=== PATIENT | female | born 1950 | race Hispanic/Latino ===

== ENCOUNTER 2017-05-13 05:53 | Inpatient (IN) | payer MEDICARE, OTHER ==
[2017-05-11 10:58] VITALS: BMI 24.6
--- NOTE | 2017-05-13 07:21 | CP.PCM.HP ---
History of Present Illness - History of Present Illness History of Present Illness: This is a 66 y/o right handed female who presents with progressive neck pain that has been going on for over a year and has been worsening in the past few months. She describes it as tightness, that starts in back of neck and radiates to her head and shoulders. It is associated with subjective heaviness and weakness of extremities. Her cervical spine was recently imaged after a symptom exacerbation . The imaging revealed severe degenerative cervical spondylosis and stenosis prompting surgical consideration due to severity and risk of cord injury in the event of trauma or a fall. She denies urinary or bladder incontinence, numbness or paresthesias, gait instability, or dizziness. Present on Admission - Present on Admission Any Indicators Present on Admission: No Review of Systems - Neurological Neurological: As Per HPI Past Patient History - Infectious Disease Hx of Infectious Diseases: None - Past Medical History & Family History Past Medical History?: Yes - Past Social History Smoking Status: Never Smoked - CARDIAC Hx Cardiac Disorders: Yes Hx Hypertension: Yes - PULMONARY Hx Respiratory Disorders: No - NEUROLOGICAL Hx Neurological Disorder: No - HEENT Hx HEENT Problems: No - RENAL Hx Chronic Kidney Disease: No - ENDOCRINE/METABOLIC Hx Endocrine Disorders: No - HEMATOLOGICAL/ONCOLOGICAL Hx Blood Disorders: Yes Hx Cancer: Yes (hx of L breast cancer) - INTEGUMENTARY Hx Dermatological Problems: No - MUSCULOSKELETAL/RHEUMATOLOGICAL Hx Musculoskeletal Disorders: No Hx Arthritis: Yes - GASTROINTESTINAL Hx Gastrointestinal Disorders: No - GENITOURINARY/GYNECOLOGICAL Hx Genitourinary Disorders: No - PSYCHIATRIC Hx Psychophysiologic Disorder: No Hx Substance Use: No - SURGICAL HISTORY Hx Surgeries: Yes Hx Arthroscopy: Yes (right knee) Hx Breast Biopsy: Yes (left/lumpectomy) Other/Comment: L breast surgery with lymph removed. - ANESTHESIA Hx Anesthesia: Yes Hx Anesthesia Reactions: Yes (shivering) Hx Malignant Hyperthermia: No Has any member of the family had a problem w/ anesthesia?: No Meds Allergies/Adverse Reactions: Allergies Allergy/AdvReac Type Severity Reaction Status Date / Time No Known Allergies Allergy Verified 01/25/17 11:39 Physical Exam - Neurological Exam Additional comments: A&Ox3 CN intact CÁRDENAS Motor 5/5 throughout sensation intact pain induced with deltoid motor testing neg spurlings limited ROM of neck No tenderness to palpation on neck. Neg morataya Results - Vital Signs Recent Vital Signs: Last Vital Signs Temp 98.2 F 01/10/18 06:31 Pulse 78 05/13/17 06:34 Resp 20 05/13/17 06:31 BP 144/80 05/13/17 06:31 Pulse Ox 97 05/13/17 06:31 - Imaging and Cardiology MRI C spine Status: Image reviewed by me, Report reviewed by me Assessment & Plan - Assessment and Plan (Free Text) Assessment: Cervical spondylosis, stenosis Plan: Patient presented to Dr. Cm for second opinion for surgical intervention Imaging reviewed and explained to patient. Proposed Cervical laminectomy C4-C7 with PSF Risks and benefits explained , risks such as infection, hemorrhage, CSF leak, weakness, numbness, failure of surgery or need for futher surgery explained. The patient expressed understanding of the above and all questions answered. Will proceed with proposed procedure.
[2017-05-13] MEDS ORDERED: Thrombin Topical 5,000 Int Units Spray Kit ONE (07:24)
[2017-05-13] MEDS ORDERED: Bupivacaine HCl 0.25% PF (30 ml) Inj ONE (07:24)
[2017-05-13] MEDS ORDERED: ceFAZolin IV 1 gm in Dextrose 1 GM/50 ML BAG IVPB ONE (07:24)
[2017-05-13] MEDS ORDERED: Absorbable Gelatin Sponge Size 100 ONE (07:24)
[2017-05-13] MEDS ORDERED: Lidocaine 1% Inj (20ml) ONE (07:24)
[2017-05-13] MEDS ORDERED: Bacitracin Ointment 30 GM TUBE ONE (07:46)
[2017-05-13] MEDS ORDERED: Propofol 10 mg/ml Inj (20 ML) ONE (07:51)
[2017-05-13] MEDS ORDERED: Midazolam 2 MG/2 ML VIAL ONE (07:51)
[2017-05-13] MEDS ORDERED: Rocuronium 10 mg/ml (5 ml) ONE (07:52)
[2017-05-13] MEDS ORDERED: Lidocaine 4% (Laryng-O-Jet) Kit MM ONE (07:52)
[2017-05-13] MEDS ORDERED: Lidocaine/Epi 1% 1:100000 20 ML IJ ONE (08:25)
[2017-05-13] MEDS ORDERED: Sevoflurane - Inhalation Anesthetic Liq (250 ml) ONE (08:32)
[2017-05-13] MEDS ORDERED: HEMOSTATIC MATRIX 10 ML DIS.NEEDLE TOP ONE ×3 (08:46→09:30)
[2017-05-13] MEDS ORDERED: ePHEDrine 50 mg/ml Inj ONE (09:46)
[2017-05-13] MEDS ORDERED: Lactated Ringer's 1,000 ML IV ONE ×2 (09:49→09:53)
[2017-05-13] MEDS ORDERED: HYDROmorphone 0.5 mg/0.5 ml ISec IVP PRN ×2 (10:25→11:27)
--- NOTE | 2017-05-13 11:18 | PCM.SURG1 ---
Surgeon's Initial Post Op Note - Surgeon's Notes Surgeon: Reyes Cm MD Big Data Platform Architect: Xavier FERRER Type of Anesthesia: General Endo Anesthesia Administered By: Huseyin Pre-Operative Diagnosis: Cervical spondylosis and stenosis Operative Findings: cervical stenosis, osteophytes. Post-Operative Diagnosis: as above Operation Performed: Decompressive cervical laminetomy and lateral mass screw instrumentation fusion C4-C7 Specimen/Specimens Removed: none Estimated Blood Loss: EBL {In ML}: 150 Blood Products Given: N/A Drains Used: No Drains, Chavez Curtis (x2 sub fascial ) Post-Op Condition: Good Date of Surgery/Procedure: 05/13/17 Time of Surgery/Procedure: 10:00
[2017-05-13] MEDS: Lactated Ringer's 1,000 ML IV SCH ×2 (12:50→20:19)
--- NOTE | 2017-05-13 12:50 | CP.PCM.HP ---
<Maral Cortés - Last Filed: 05/13/17 13:07> History of Present Illness - History of Present Illness History of Present Illness: 66 yr old F presented to same day surgery for scheduled cervical laminectomy of C4-C7 with fusion s/p severe non-traumatic protruding degenerative disease of cervical spine. PMHx includes HTN, obesity, chronic cervical back pain and TMJ dysfunction. Patient seen and examined at bedside with attending Dr. Mathews. Patient reports having chronic worsening persistent cervical back pain. Denies chest pain, SOB, weakness, dizziness or visual changes. PMD: [facility] PMHx: HTN, obesity, chronic cervical back pain and TMJ dysfunction SurgHx: left breast lumpectomy with lymph node removal, right knee arthroscopy FMHx: noncontributory SocHx: denies smoking, Etoh or drugs Medications: ASA 81mg PO QD, Procardia XL 60mg PO QD, Simvastatin 20mg PO QHS, Calcium 500mg PO QD, Multivitamin 1 tab PO QD, [place]-3 1 tab PO QD Allergies: NKDA Present on Admission - Present on Admission Any Indicators Present on Admission: No History of DVT/PE: No History of Uncontrolled Diabetes: No Urinary Catheter: No Decubitus Ulcer Present: No History Surgical Site Infection Following: None Review of Systems - Review of Systems All systems: reviewed and no additional remarkable complaints except (for what is mentioned in the HPI) - Constitutional Constitutional: absent: Chills, Weight Loss - EENT Eyes: absent: Blurred Vision, Change in Vision Ears: absent: Disequilibrium, Dizziness Nose/Mouth/Throat: absent: Nasal Congestion, Nasal Discharge - Cardiovascular Cardiovascular: absent: Chest Pain - Respiratory Respiratory: absent: Cough, Dyspnea - Gastrointestinal Gastrointestinal: absent: Abdominal Pain, Diarrhea, Vomiting - Genitourinary Genitourinary: absent: Difficulty Urinating, Dysuria - Menstruation Menstruation: Post Menopausal - Neurological Neurological: absent: Dizziness, Syncope - Psychiatric Psychiatric: absent: Homicidal Ideation, Suicidal Ideation - Endocrine Endocrine: absent: Polydipsia, Polyphagia, Polyuria - Hematologic/Lymphatic Hematologic: absent: Easy Bleeding, Easy Bruising Past Patient History - Infectious Disease Hx of Infectious Diseases: None - Past Medical History & Family History Past Medical History?: Yes - Past Social History Smoking Status: Never Smoked - CARDIAC Hx Cardiac Disorders: Yes Hx Hypertension: Yes - PULMONARY Hx Respiratory Disorders: No - NEUROLOGICAL Hx Neurological Disorder: No - HEENT Hx HEENT Problems: No - RENAL Hx Chronic Kidney Disease: No - ENDOCRINE/METABOLIC Hx Endocrine Disorders: No - HEMATOLOGICAL/ONCOLOGICAL Hx Blood Disorders: Yes Hx Cancer: Yes (hx of L breast cancer) - INTEGUMENTARY Hx Dermatological Problems: No - MUSCULOSKELETAL/RHEUMATOLOGICAL Hx Musculoskeletal Disorders: No Hx Arthritis: Yes - GASTROINTESTINAL Hx Gastrointestinal Disorders: No - GENITOURINARY/GYNECOLOGICAL Hx Genitourinary Disorders: No - PSYCHIATRIC Hx Psychophysiologic Disorder: No Hx Substance Use: No - SURGICAL HISTORY Hx Surgeries: Yes Hx Arthroscopy: Yes (right knee) Hx Breast Biopsy: Yes (left/lumpectomy) Other/Comment: L breast surgery with lymph removed. - ANESTHESIA Hx Anesthesia: Yes Hx Anesthesia Reactions: Yes (shivering) Hx Malignant Hyperthermia: No Has any member of the family had a problem w/ anesthesia?: No Meds Allergies/Adverse Reactions: Allergies Allergy/AdvReac Type Severity Reaction Status Date / Time No Known Allergies Allergy Verified 01/25/17 11:39 Physical Exam - Constitutional Appears: Non-toxic - Head Exam Head Exam: ATRAUMATIC, NORMOCEPHALIC - Eye Exam Eye Exam: EOMI, PERRL - ENT Exam ENT Exam: Mucous Membranes Moist - Neck Exam Neck exam: Positive for: Full Rom - Respiratory Exam Respiratory Exam: Clear to Auscultation Bilateral, NORMAL BREATHING PATTERN - Cardiovascular Exam Cardiovascular Exam: REGULAR RHYTHM, +S1, +S2 - GI/Abdominal Exam GI & Abdominal Exam: Normal Bowel Sounds, Soft (obese). absent: Tenderness - Extremities Exam Extremities exam: Positive for: full ROM. Negative for: pedal edema - Neurological Exam Neurological exam: Alert, CN II-XII Intact, Oriented x3 - Psychiatric Exam Psychiatric exam: Normal Affect, Normal Mood - Skin Skin Exam: Dry, Normal Color, Warm Results - Vital Signs Recent Vital Signs: Last Vital Signs Temp 96.2 F L 05/13/17 10:25 Pulse 86 05/13/17 10:25 Resp 18 05/13/17 10:25 BP 109/67 05/13/17 10:25 Pulse Ox 100 05/13/17 10:25 - Labs Labs: Laboratory Results - last 24 hr 05/13/17 05/13/17 06:45 08:20 Blood Type A POSITIVE Blood Type Confirm A POSITIVE Antibody Screen Negative BBK History Checked No verified bt Assessment & Plan - Assessment and Plan (Free Text) Assessment: 66 yr old F presented to same day surgery for scheduled cervical laminectomy of C4-C7 with fusion s/p severe non-traumatic protruding degenerative disease of cervical spine. Patient seen and examined at bedside with attending Dr. Mathews. Patient is medically stable for surgery. -continue present management -will resume home medications after surgery -monitor BP -admit to telemetry for medical management s/p surgery - Date & Time Date: 05/13/17 Time: 10:00 <Karson Mathews - Last Filed: 05/17/17 17:33> Results - Vital Signs Recent Vital Signs: Last Vital Signs Temp 98.7 F 05/17/17 16:00 Pulse 97 H 05/17/17 16:00 Resp 14 05/17/17 16:00 BP 138/82 05/17/17 16:00 Pulse Ox 97 05/17/17 16:00 - Labs Result Diagrams: 05/14/17 05:00 05/14/17 05:00 Assessment & Plan - Assessment and Plan (Free Text) Plan: discussed with Dr Cortés and agree with palns and management. Karson Mathews MD
[2017-05-13] MEDS: oxyCODONE 5 mg Immediate Release Tab PO PRN ×2 (16:48→21:21)
[2017-05-13] MEDS: Docusate-Senna 50 mg-8.6 mg Tab PO SCH (21:23)
--- NOTE | 2017-05-14 02:48 | OP ---
PROCEDURE DATE: 05/13/2017 PREOPERATIVE DIAGNOSIS: Cervical spondylosis with myelopathy. POSTOPERATIVE DIAGNOSIS: Cervical spondylosis with myelopathy. PROCEDURES: C4-C7 cervical laminectomy; C4-C7 lateral mass plating using K2 system; C4-C7 posterolateral fusion; head bone grinder had been used; fluoroscopy had been used. SURGEON: Reyes Cm MD. DENTAL FRONT OFFICE ASSISTANT: Xavier Lau. Xavier Lau is a physician assistant professor of nursing who helped me perform the surgery. DESCRIPTION OF PROCEDURE: The patient was brought to the operating room, anesthetized with general endotracheal anesthesia. The head was placed in a 3-pin Lind head bone grinder under asceptic precautions, placed in a prone position on a Jalen frame. Care was taken to protect all the pressure points. The head bone grinder had been clamped to the bed. Back of the cervical area was thoroughly prepped and draped in standard sterile manner after marking was consistent for cervical laminectomy. After prepping and draping the area, skin had been incised. Bleeding skins had been controlled with bipolar customer technical services manager. After using a Bovie customer technical services manager, paraspinal muscles had been detached, attachments of spinous process, lamina of C4-C7. Identification of the levels had been done with the help of fluoroscopy. Deep retractors had been applied. By using a traditional landmark, the point of entry noted for lateral mass screws at C4, C5, C6 and C7. Initially, a guide, later a drill had been used. Polyaxial titanium screws had been placed of K2 system. Titanium rods had been placed. Cap nuts had been used in order to secure them. After this, by using a Le[place]ell rongeur, the spinous processes of C4, C5, C6, C7 had been removed. By using a high-speed drill, lamina had been drilled to actual thickness. By using a fine Kerrison punch, thinned out some lamina, medial part of the facets and ligamentum flavum had been removed decompressing this area. After that, the lateral aspect of the facets joints had been decorticated; demineralized bone placed in the area achieving a posterolateral fusion. Hemostasis was best achieved. Chavez drain was placed in the wound and brought out through a separate stab neck skin incision. Fascia closed with 1 Vicryl, subcutaneous tissue with 3 Vicryl, skin had been closed with intradermal 3 Vicryl stitches. The patient tolerated the procedure. After the procedure, mobilized to the recovery room in stabilized condition. Reyes Cm MD
[2017-05-14] MEDS: Lactated Ringer's 1,000 ML IV SCH ×2 (03:55→09:14)
[2017-05-14 06:15] LABS: HEMOGLOBIN 10.7 g/dL (12.0-16.0); MEAN CELL VOLUME 86.5 fl (81.0-99.0); MEAN CORPUSCULAR HEMOGLOBIN 27.3 pg (27.0-31.0); MEAN CORPUSCULAR HGB CONC 31.6 g/dL (33.0-37.0); RBC 3.91 Mil/uL (3.80-5.20); RED CELL DISTRIBUTION WIDTH 13.4 % (11.5-14.5); WHITE BLOOD COUNT 11.4 K/uL (4.8-10.8)
[2017-05-14 06:23] LABS: BLOOD UREA NITROGEN 12 mg/dl (7-17); CALCIUM 8.8 mg/dL (8.4-10.2); GFR AFRICAN-AMERICAN > 60; GFR NON-AFRICAN AMERICAN > 60
--- NOTE | 2017-05-14 11:06 | CP.PCM.PN ---
<Maral Cortés - Last Filed: 05/14/17 12:43> Subjective - Date & Time of Evaluation Date of Evaluation: 05/14/17 Time of Evaluation: 10:05 - Subjective Subjective: Patient seen and examined at bedside with attending-Dr. Mathews. Reports she neck stiffness. Denies chest pain, SOB or weakness. Has normal urine output and is tolerating PO diet. Objective - Vital Signs/Intake and Output Vital Signs (last 24 hours): Temp Pulse Resp BP Pulse Ox 99.1 F 75 20 124/71 97 05/14/17 08:41 05/14/17 08:41 05/14/17 08:41 05/14/17 08:41 05/14/17 08:41 - Medications Medications: Current Medications Acetaminophen (Tylenol 325mg Tab) 975 mg PO Q6 [facility] Last Admin: 05/14/17 09:04 Dose: 975 mg Cyclobenzaprine HCl (Flexeril) 10 mg PO TID PRN PRN Reason: Muscle spasm Docusate Sodium (Colace) 100 mg PO BID [facility] Last Admin: 05/14/17 08:59 Dose: 100 mg Hydromorphone HCl (Dilaudid) 0.5 mg IVP Q6 PRN PRN Reason: Pain, severe (8-10) Stop: 05/15/17 11:27 Lactated Ringer's (Lactated Ringer's) 1,000 mls @ 100 mls/hr IV .Q10H [facility] Last Admin: 05/14/17 03:55 Dose: 100 mls/hr Vancomycin HCl 1 gm/ Sodium (Chloride) 250 mls @ 166.667 mls/hr IVPB Q12 [facility] PRN Reason: Protocol Stop: 05/14/17 22:29 Last Admin: 05/14/17 09:04 Dose: 166.667 mls/hr Lactated Ringer's (Lactated Ringer's) 1,000 mls @ 100 mls/hr IV .Q10H [facility] Last Admin: 05/14/17 09:14 Dose: 100 mls/hr Ondansetron HCl (Zofran Inj) 4 mg IVP Q6 PRN PRN Reason: Nausea/Vomiting Oxycodone HCl (Oxycodone Immediate Release Tab) 10 mg PO Q4 PRN PRN Reason: Pain, moderate (4-7) Last Admin: 05/13/17 21:21 Dose: 10 mg Senna/Docusate Sodium (Senokot S 50 Mg-8.6 Mg) 2 tab PO HS [facility] Last Admin: 05/13/17 21:23 Dose: 2 tab - Labs Labs: 05/14/17 05:00 05/14/17 05:00 - Constitutional Appears: Non-toxic - Head Exam Head Exam: ATRAUMATIC, NORMOCEPHALIC - Eye Exam Eye Exam: EOMI, PERRL - ENT Exam ENT Exam: Mucous Membranes Moist - Neck Exam Additional comments: in soft neck brace, [address] with serosanguinous drainage of less than 5cc - Respiratory Exam Respiratory Exam: NORMAL BREATHING PATTERN - Cardiovascular Exam Cardiovascular Exam: REGULAR RHYTHM, +S1, +S2 - GI/Abdominal Exam GI & Abdominal Exam: Soft, Normal Bowel Sounds - Extremities Exam Extremities Exam: Full ROM. absent: Pedal Edema - Neurological Exam Neurological Exam: Alert, Awake, Oriented x3 - Psychiatric Exam Psychiatric exam: Normal Affect, Normal Mood - Skin Skin Exam: Dry, Normal Color, Warm Assessment and Plan - Assessment and Plan (Free Text) Assessment: 66 yr old F POD# 1 s/p cervical laminectomy of C4-C7 with fusion for severe non- traumatic protruding degenerative disease of cervical spine. Patient seen and examined at bedside with attending Dr. Mathews. Patient is medically stable for physical therapy. -continue present management -will resume home medications -monitor BP -admit to telemetry for medical management s/p surgery -flexeril 10mg PO TID PRN <Karson Mathews - Last Filed: 05/17/17 17:39> Objective - Vital Signs/Intake and Output Vital Signs (last 24 hours): Temp Pulse Resp BP Pulse Ox 98.7 F 97 H 14 138/82 97 05/17/17 16:00 05/17/17 16:00 05/17/17 16:00 05/17/17 16:00 05/17/17 16:00 Intake and Output: 05/17/17 05/17/17 06:59 18:59 Intake Total 900 Output Total 20 Balance 880 - Medications Medications: Current Medications Acetaminophen (Tylenol 325mg Tab) 650 mg PO Q6 PRN PRN Reason: Fever >100.4 F Aspirin (Ecotrin) 81 mg PO MWF [facility] Last Admin: 05/15/17 09:02 Dose: 81 mg Atorvastatin Calcium (Lipitor) 10 mg PO HS [facility] Last Admin: 05/17/17 02:01 Dose: 10 mg Calcium Carbonate (Oscal) 500 mg PO DAILY [facility] Last Admin: 05/17/17 09:24 Dose: 500 mg Cyclobenzaprine HCl (Flexeril) 10 mg PO TID PRN PRN Reason: Muscle spasm Last Admin: 05/17/17 12:26 Dose: 10 mg Docusate Sodium (Colace) 100 mg PO BID [facility] Last Admin: 05/17/17 09:24 Dose: 100 mg Enoxaparin Sodium (Lovenox) 40 mg SC DAILY [facility] PRN Reason: Protocol Last Admin: 05/17/17 09:25 Dose: 40 mg Multivitamins/Minerals (Therapeutic-M Tab) 1 tab PO DAILY [facility] Last Admin: 05/17/17 09:24 Dose: 1 tab Nifedipine (Procardia Xl) 60 mg PO DAILY [facility] Last Admin: 05/17/17 09:24 Dose: 60 mg Ootlw-[id number] Ethyl Esters (Lovaza) 1 gm PO DAILY [facility] Last Admin: 05/17/17 09:24 Dose: 1 gm Ondansetron HCl (Zofran Inj) 4 mg IVP Q6 PRN PRN Reason: Nausea/Vomiting Oxycodone HCl (Oxycodone Immediate Release Tab) 10 mg PO Q3 PRN PRN Reason: Pain, moderate (4-7) Last Admin: 05/17/17 14:53 Dose: 10 mg Senna/Docusate Sodium (Senokot S 50 Mg-8.6 Mg) 2 tab PO [facility] Last Admin: 05/16/17 22:06 Dose: 2 tab - Labs Labs: 05/14/17 05:00 05/14/17 05:00 PT 11.2 Seconds (9.8-13.1) 05/15/17 16:30 INR 1.0 (0.9-1.2) 05/15/17 16:30 APTT 29.1 Seconds (25.6-37.1) 05/15/17 16:30 Assessment and Plan - Assessment and Plan (Free Text) Plan: I was present during evaluation and discussed with Dr Cortés re plans of care and mgt. Karson Mathews M.D.
[2017-05-14] MEDS: oxyCODONE 5 mg Immediate Release Tab PO PRN ×2 (15:50→22:26)
--- NOTE | 2017-05-14 19:27 | RAD ---
PROCEDURE: Intraoperative Fluoroscopy. HISTORY: PCDF FINDINGS: Fluoroscopic assistance was provided for posterior spinal decompression and fusion. Please refer to the operative report from cumulative radiation dose 1.39 mGy.
[2017-05-14] MEDS: Docusate-Senna 50 mg-8.6 mg Tab PO SCH (22:30)
[2017-05-15] MEDS: oxyCODONE 5 mg Immediate Release Tab PO PRN ×3 (04:09→23:11)
--- NOTE | 2017-05-15 07:06 | CP.PCM.DIS ---
Provider - Provider Date of Admission: 05/13/17 11:18 Attending physician: Karson Mathews MD Primary care physician: David Maloney DO Hospital Course - Lab Results Lab Results: Most Recent Lab Values WBC 11.4 K/uL (4.8-10.8) H 05/14/17 05:00 RBC 3.91 Mil/uL (3.80-5.20) 05/14/17 05:00 Hgb 10.7 g/dL (12.0-16.0) L 05/14/17 05:00 Hct 33.8 % (34.0-47.0) L 05/14/17 05:00 MCV 86.5 fl (81.0-99.0) 05/14/17 05:00 MCH 27.3 pg (27.0-31.0) 05/14/17 05:00 MCHC 31.6 g/dL (33.0-37.0) L 05/14/17 05:00 RDW 13.4 % (11.5-14.5) 05/14/17 05:00 Plt Count 217 K/uL (130-400) 05/14/17 05:00 Sodium 140 mmol/l (132-148) 05/14/17 05:00 Potassium 3.8 MMOL/L (3.6-5.0) 05/14/17 05:00 Chloride 104 mmol/L (98-107) 05/14/17 05:00 Carbon Dioxide 27 mmol/L (22-30) 05/14/17 05:00 Anion Gap 13 (10-20) 05/14/17 05:00 BUN 12 mg/dl (7-17) 05/14/17 05:00 Creatinine 0.6 mg/dl (0.7-1.2) L 05/14/17 05:00 Est GFR ( Amer) > 60 05/14/17 05:00 Est GFR (Non-Af Amer) > 60 05/14/17 05:00 Random Glucose 110 mg/dL (65-105) H 05/14/17 05:00 Calcium 8.8 mg/dL (8.4-10.2) 05/14/17 05:00 Blood Type A POSITIVE 05/13/17 06:45 Blood Type Confirm A POSITIVE 05/13/17 08:20 Antibody Screen Negative 05/13/17 06:45 BBK History Checked No verified bt 05/13/17 06:45 Discharge Exam - Head Exam Head Exam: ATRAUMATIC, NORMOCEPHALIC Discharge Plan - Follow Up Plan Condition: GOOD Disposition: HOME/ ROUTINE Referrals: David Maloney DO [Primary Care Provider] -
[2017-05-15] MEDS: NIFEdipine 60 mg ER Tab PO SCH (09:02)
[2017-05-15] MEDS: Omega-3-Acid Ethyl Esters 1 GM Cap PO SCH (09:02)
[2017-05-15] MEDS: Multivitamin With Minerals Tab PO SCH (09:02)
--- NOTE | 2017-05-15 11:19 | CP.PCM.PN ---
<Maral Cortés - Last Filed: 05/15/17 11:29> Subjective - Date & Time of Evaluation Date of Evaluation: 05/15/17 Time of Evaluation: 09:30 - Subjective Subjective: Patient seen and examined at bedside with attending-Dr. Mathews. Awake and alert , reports neck stiffness remains but has mildly improved. Tolerating PO diet, reports normal urine output, pain controlled. Patient is ambulating to the bathroom without difficulty. Objective - Vital Signs/Intake and Output Vital Signs (last 24 hours): Temp Pulse Resp BP Pulse Ox 98.7 F 84 18 137/77 96 05/15/17 08:00 05/15/17 09:02 05/15/17 08:00 05/15/17 09:02 05/15/17 08:00 Intake and Output: 05/15/17 05/15/17 06:59 18:59 Intake Total 406 Output Total 35 Balance 371 - Medications Medications: Current Medications Acetaminophen (Tylenol 325mg Tab) 975 mg PO Q6 [facility] Last Admin: 05/15/17 09:04 Dose: Not Given Aspirin (Ecotrin) 81 mg PO MWF [facility] Last Admin: 05/15/17 09:02 Dose: 81 mg Atorvastatin Calcium (Lipitor) 10 mg PO HS [facility] Last Admin: 05/14/17 22:30 Dose: 10 mg Calcium Carbonate (Oscal) 500 mg PO DAILY [facility] Last Admin: 05/15/17 09:02 Dose: 500 mg Cyclobenzaprine HCl (Flexeril) 10 mg PO TID PRN PRN Reason: Muscle spasm Last Admin: 05/15/17 09:01 Dose: 10 mg Docusate Sodium (Colace) 100 mg PO BID [facility] Last Admin: 05/15/17 09:01 Dose: 100 mg Hydromorphone HCl (Dilaudid) 0.5 mg IVP Q6 PRN PRN Reason: Pain, severe (8-10) Stop: 05/15/17 11:27 Multivitamins/Minerals (Therapeutic-M Tab) 1 tab PO DAILY [facility] Last Admin: 05/15/17 09:02 Dose: 1 tab Nifedipine (Procardia Xl) 60 mg PO DAILY [facility] Last Admin: 05/15/17 09:02 Dose: 60 mg Goswg-0-Bfzj Ethyl Esters (Lovaza) 1 gm PO DAILY [facility] Last Admin: 05/15/17 09:02 Dose: 1 gm Ondansetron HCl (Zofran Inj) 4 mg IVP Q6 PRN PRN Reason: Nausea/Vomiting Oxycodone HCl (Oxycodone Immediate Release Tab) 10 mg PO Q4 PRN PRN Reason: Pain, moderate (4-7) Last Admin: 05/15/17 04:09 Dose: 10 mg Senna/Docusate Sodium (Senokot S 50 Mg-8.6 Mg) 2 tab PO HS [facility] Last Admin: 05/14/17 22:30 Dose: 2 tab - Labs Labs: 05/14/17 05:00 05/14/17 05:00 - Constitutional Appears: Non-toxic - Head Exam Head Exam: ATRAUMATIC, NORMOCEPHALIC - Eye Exam Eye Exam: EOMI - ENT Exam ENT Exam: Mucous Membranes Moist - Neck Exam Additional comments: neck in soft brace, left drain with approximately 10 cc of serous sanguinous fluid, right drain with 2 cc. - Cardiovascular Exam Cardiovascular Exam: REGULAR RHYTHM, +S1, +S2 - GI/Abdominal Exam GI & Abdominal Exam: Soft, Normal Bowel Sounds. absent: Tenderness - Extremities Exam Extremities Exam: Full ROM. 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 Patient seen and examined at bedside with attending Dr. Mathews. Patient is medically stable for physical therapy. Patient had significant serous sanguinous drainage from left cervical drain of 80 cc yesterday and 35 cc overnight. -continue present management -continue home medications -monitor BP -neurosurgery consult appreciated-will follow recommendations -PT/OT, out of bed to chair -flexeril 10mg PO TID PRN <Karson Mathews - Last Filed: 05/17/17 17:43> Objective - Vital Signs/Intake and Output Vital Signs (last 24 hours): Temp Pulse Resp BP Pulse Ox 98.7 F 97 H 14 138/82 97 05/17/17 16:00 05/17/17 16:00 05/17/17 16:00 05/17/17 16:00 05/17/17 16:00 Intake and Output: 05/17/17 05/17/17 06:59 18:59 Intake Total 900 Output Total 20 Balance 880 - Medications Medications: Current Medications Acetaminophen (Tylenol 325mg Tab) 650 mg PO Q6 PRN PRN Reason: Fever >100.4 F Aspirin (Ecotrin) 81 mg PO MWF [facility] Last Admin: 05/15/17 09:02 Dose: 81 mg Atorvastatin Calcium (Lipitor) 10 mg PO HS [facility] Last Admin: 05/17/17 02:01 Dose: 10 mg Calcium Carbonate (Oscal) 500 mg PO DAILY [facility] Last Admin: 05/17/17 09:24 Dose: 500 mg Cyclobenzaprine HCl (Flexeril) 10 mg PO TID PRN PRN Reason: Muscle spasm Last Admin: 05/17/17 12:26 Dose: 10 mg Docusate Sodium (Colace) 100 mg PO BID [facility] Last Admin: 05/17/17 09:24 Dose: 100 mg Enoxaparin Sodium (Lovenox) 40 mg SC DAILY [facility] PRN Reason: Protocol Last Admin: 05/17/17 09:25 Dose: 40 mg Multivitamins/Minerals (Therapeutic-M Tab) 1 tab PO DAILY [facility] Last Admin: 05/17/17 09:24 Dose: 1 tab Nifedipine (Procardia Xl) 60 mg PO DAILY [facility] Last Admin: 05/17/17 09:24 Dose: 60 mg Tbwcy-4-Wmhn Ethyl Esters (Lovaza) 1 gm PO DAILY [facility] Last Admin: 05/17/17 09:24 Dose: 1 gm Ondansetron HCl (Zofran Inj) 4 mg IVP Q6 PRN PRN Reason: Nausea/Vomiting Oxycodone HCl (Oxycodone Immediate Release Tab) 10 mg PO Q3 PRN PRN Reason: Pain, moderate (4-7) Last Admin: 05/17/17 14:53 Dose: 10 mg Senna/Docusate Sodium (Senokot S 50 Mg-8.6 Mg) 2 tab PO [facility] Last Admin: 05/16/17 22:06 Dose: 2 tab - Labs Labs: 05/14/17 05:00 05/14/17 05:00 PT 11.2 Seconds (9.8-13.1) 05/15/17 16:30 INR 1.0 (0.9-1.2) 05/15/17 16:30 APTT 29.1 Seconds (25.6-37.1) 05/15/17 16:30 Assessment and Plan - Assessment and Plan (Free Text) Plan: I was present during evaluation and discussed with Dr Cortés re plans of care and mgt. Karson Mathews M.D.
[2017-05-15 17:14] LABS: PARTIAL THROMBOPLASTIN TIME 29.1 Seconds (25.6-37.1); PROTHROMBIN TIME 11.2 Seconds (9.8-13.1)
[2017-05-15] MEDS: Enoxaparin 40 mg Syringe SC SCH (22:14)
[2017-05-15] MEDS: Docusate-Senna 50 mg-8.6 mg Tab PO SCH (22:14)
[2017-05-16] MEDS: oxyCODONE 5 mg Immediate Release Tab PO PRN ×2 (05:46→14:34)
[2017-05-16] MEDS: Enoxaparin 40 mg Syringe SC SCH (08:32)
[2017-05-16] MEDS: Omega-3-Acid Ethyl Esters 1 GM Cap PO SCH (08:33)
[2017-05-16] MEDS: Multivitamin With Minerals Tab PO SCH (08:33)
[2017-05-16] MEDS: NIFEdipine 60 mg ER Tab PO SCH (08:34)
[2017-05-16] MEDS: oxyCODONE 10 mg Immediate Release Tab PO PRN (22:04)
[2017-05-16] MEDS: Docusate-Senna 50 mg-8.6 mg Tab PO SCH (22:06)
[2017-05-17] MEDS: oxyCODONE 10 mg Immediate Release Tab PO PRN ×3 (06:06→21:28)
[2017-05-17] MEDS: Omega-3-Acid Ethyl Esters 1 GM Cap PO SCH (09:24)
[2017-05-17] MEDS: NIFEdipine 60 mg ER Tab PO SCH (09:24)
[2017-05-17] MEDS: Multivitamin With Minerals Tab PO SCH (09:24)
[2017-05-17] MEDS: Enoxaparin 40 mg Syringe SC SCH (09:25)
--- NOTE | 2017-05-17 17:49 | CP.PCM.PN ---
Subjective - Date & Time of Evaluation Date of Evaluation: 05/16/17 Time of Evaluation: 17:00 - Subjective Subjective: patient remains stable Still with significant drainage. Has minimal pain on the op site. Has no fever. Objective - Vital Signs/Intake and Output Vital Signs (last 24 hours): Temp Pulse Resp BP Pulse Ox 98.7 F 97 H 14 138/82 97 05/17/17 16:00 05/17/17 16:00 05/17/17 16:00 05/17/17 16:00 05/17/17 16:00 Intake and Output: 05/17/17 05/17/17 06:59 18:59 Intake Total 900 Output Total 20 Balance 880 - Medications Medications: Current Medications Acetaminophen (Tylenol 325mg Tab) 650 mg PO Q6 PRN PRN Reason: Fever >100.4 F Aspirin (Ecotrin) 81 mg PO MWF [facility] Last Admin: 05/15/17 09:02 Dose: 81 mg Atorvastatin Calcium (Lipitor) 10 mg PO HS [facility] Last Admin: 05/17/17 02:01 Dose: 10 mg Calcium Carbonate (Oscal) 500 mg PO DAILY [facility] Last Admin: 05/17/17 09:24 Dose: 500 mg Cyclobenzaprine HCl (Flexeril) 10 mg PO TID PRN PRN Reason: Muscle spasm Last Admin: 05/17/17 12:26 Dose: 10 mg Docusate Sodium (Colace) 100 mg PO BID [facility] Last Admin: 05/17/17 09:24 Dose: 100 mg Enoxaparin Sodium (Lovenox) 40 mg SC DAILY [facility] PRN Reason: Protocol Last Admin: 05/17/17 09:25 Dose: 40 mg Multivitamins/Minerals (Therapeutic-M Tab) 1 tab PO DAILY [facility] Last Admin: 05/17/17 09:24 Dose: 1 tab Nifedipine (Procardia Xl) 60 mg PO DAILY [facility] Last Admin: 05/17/17 09:24 Dose: 60 mg Sizxb-4-Ryhr Ethyl Esters (Lovaza) 1 gm PO DAILY [facility] Last Admin: 05/17/17 09:24 Dose: 1 gm Ondansetron HCl (Zofran Inj) 4 mg IVP Q6 PRN PRN Reason: Nausea/Vomiting Oxycodone HCl (Oxycodone Immediate Release Tab) 10 mg PO Q3 PRN PRN Reason: Pain, moderate (4-7) Last Admin: 05/17/17 14:53 Dose: 10 mg Senna/Docusate Sodium (Senokot S 50 Mg-8.6 Mg) 2 tab PO HS [facility] Last Admin: 05/16/17 22:06 Dose: 2 tab - Labs Labs: 05/14/17 05:00 05/14/17 05:00 PT 11.2 Seconds (9.8-13.1) 05/15/17 16:30 INR 1.0 (0.9-1.2) 05/15/17 16:30 APTT 29.1 Seconds (25.6-37.1) 05/15/17 16:30 - Head Exam Head Exam: NORMAL INSPECTION - Eye Exam Eye Exam: Normal appearance - ENT Exam ENT Exam: Mucous Membranes Moist - Respiratory Exam Respiratory Exam: Clear to Ausculation Bilateral - Cardiovascular Exam Cardiovascular Exam: REGULAR RHYTHM - GI/Abdominal Exam GI & Abdominal Exam: Normal Bowel Sounds - Neurological Exam Neurological Exam: Awake, Oriented x3 - Psychiatric Exam Psychiatric exam: Normal Mood Assessment and Plan (1) Cervical radiculopathy Status: Acute (2) Hypertension Status: Acute (3) Hyperlipidemia Status: Acute (4) Status post laminectomy Status: Acute - Assessment and Plan (Free Text) Plan: Cont meds Cont tx monitor draianage pain meds.
--- NOTE | 2017-05-17 17:58 | CP.PCM.PN ---
Subjective - Date & Time of Evaluation Date of Evaluation: 05/17/17 Time of Evaluation: 17:56 - Subjective Subjective: Patient remains stable Has no chest pain or SOB. Afebrile. Objective - Vital Signs/Intake and Output Vital Signs (last 24 hours): Temp Pulse Resp BP Pulse Ox 98.7 F 97 H 14 138/82 97 05/17/17 16:00 05/17/17 16:00 05/17/17 16:00 05/17/17 16:00 05/17/17 16:00 Intake and Output: 05/17/17 05/17/17 06:59 18:59 Intake Total 900 Output Total 20 Balance 880 - Medications Medications: Current Medications Acetaminophen (Tylenol 325mg Tab) 650 mg PO Q6 PRN PRN Reason: Fever >100.4 F Aspirin (Ecotrin) 81 mg PO MWF [facility] Last Admin: 05/15/17 09:02 Dose: 81 mg Atorvastatin Calcium (Lipitor) 10 mg PO HS [facility] Last Admin: 05/17/17 02:01 Dose: 10 mg Calcium Carbonate (Oscal) 500 mg PO DAILY [facility] Last Admin: 05/17/17 09:24 Dose: 500 mg Cyclobenzaprine HCl (Flexeril) 10 mg PO TID PRN PRN Reason: Muscle spasm Last Admin: 05/17/17 12:26 Dose: 10 mg Docusate Sodium (Colace) 100 mg PO BID [facility] Last Admin: 05/17/17 09:24 Dose: 100 mg Enoxaparin Sodium (Lovenox) 40 mg SC DAILY [facility] PRN Reason: Protocol Last Admin: 05/17/17 09:25 Dose: 40 mg Multivitamins/Minerals (Therapeutic-M Tab) 1 tab PO DAILY [facility] Last Admin: 05/17/17 09:24 Dose: 1 tab Nifedipine (Procardia Xl) 60 mg PO DAILY [facility] Last Admin: 05/17/17 09:24 Dose: 60 mg Kbzdy-1-Mzmo Ethyl Esters (Lovaza) 1 gm PO DAILY [facility] Last Admin: 05/17/17 09:24 Dose: 1 gm Ondansetron HCl (Zofran Inj) 4 mg IVP Q6 PRN PRN Reason: Nausea/Vomiting Oxycodone HCl (Oxycodone Immediate Release Tab) 10 mg PO Q3 PRN PRN Reason: Pain, moderate (4-7) Last Admin: 05/17/17 14:53 Dose: 10 mg Senna/Docusate Sodium (Senokot S 50 Mg-8.6 Mg) 2 tab PO HS [facility] Last Admin: 05/16/17 22:06 Dose: 2 tab - Labs Labs: 05/14/17 05:00 05/14/17 05:00 PT 11.2 Seconds (9.8-13.1) 05/15/17 16:30 INR 1.0 (0.9-1.2) 05/15/17 16:30 APTT 29.1 Seconds (25.6-37.1) 05/15/17 16:30 - Head Exam Head Exam: NORMAL INSPECTION - Eye Exam Eye Exam: Normal appearance - ENT Exam ENT Exam: Mucous Membranes Moist - Respiratory Exam Respiratory Exam: Clear to Ausculation Bilateral - Cardiovascular Exam Cardiovascular Exam: REGULAR RHYTHM - GI/Abdominal Exam GI & Abdominal Exam: Normal Bowel Sounds - Neurological Exam Neurological Exam: CN II-XII Intact, Oriented x3 Assessment and Plan (1) Cervical radiculopathy Status: Acute (2) Hypertension Status: Acute (3) Hyperlipidemia Status: Acute (4) Status post laminectomy Status: Acute - Assessment and Plan (Free Text) Plan: Cont meds Cont tx monitor drainage. Cont monitor
[2017-05-17] MEDS: Docusate-Senna 50 mg-8.6 mg Tab PO SCH (21:29)
[2017-05-18 05:41] VITALS: TEMP 98.8; O2SAT 95
[2017-05-18 08:09] VITALS: BP 130/81; PULSE 90; RESP 20
[2017-05-18] MEDS: Omega-3-Acid Ethyl Esters 1 GM Cap PO SCH (09:17)
[2017-05-18] MEDS: Multivitamin With Minerals Tab PO SCH (09:18)
[2017-05-18] MEDS: NIFEdipine 60 mg ER Tab PO SCH (09:18)
[2017-05-18] MEDS: Enoxaparin 40 mg Syringe SC SCH (09:19)
--- NOTE | 2017-05-18 10:22 | CP.PCM.PCO ---
Assessment/Plan - Assessment/Plan Assessment (Free Text): Pt seen and examined Denies chest pain, shortness of breath, ambulating without difficulty. MARIO drains removed bilaterally with no complications. RX given for muscle relaxant and pain management. Pt to follow up with Dr Cm next thursday. Dr Mathews made aware. - Problems Patient Problems: Problem List (Active/Current) Problem Status Onset Code Cervical radiculopathy Acute M54.12 Hyperlipidemia Acute E78.5 Hypertension Acute I10 Status post laminectomy Acute Z98.890
== END 2017-05-18 12:27 | disposition home or self-care (01) | DRG 473 ==
LOC: H.OPSURG 05:53 → H.TEL 11:18
PROVIDERS: ADMIT Family Medicine; ATTEND Family Medicine
PROC: 0RG20K1 Fusion of 2 or more Cervical Vertebral Joints with Nonautologous Tissue Substitute, Posterior Approach, Posterior Column, Open Approach (ICD-10-PCS; principal; 2017-05-13 07:45)
DX: M47.12 Other spondylosis with myelopathy, cervical region (principal); E78.5 Hyperlipidemia, unspecified; M54.12 Radiculopathy, cervical region; I10 Essential (primary) hypertension; M48.02 Spinal stenosis, cervical region; G89.29 Other chronic pain; Z85.3 Personal history of malignant neoplasm of breast